=== PATIENT | female | born 1990 | race Caucasian/White ===

== ENCOUNTER 2017-12-15 21:01 | Emergency (ER) | payer BC, OTHER ==
[2017-12-15] MEDS: ACETAMINOPHEN 500 MG TAB PO (22:08)
== END 2017-12-15 23:05 | disposition home or self-care (01) ==
LOC: FTE 23:05
DX: R51 Headache (principal)
CPT/HCPCS: 70450; 81025; 99284-25

== ENCOUNTER 2017-12-16 09:52 | Emergency (ER) | payer BC | END 2017-12-16 10:44 | disposition home or self-care (01) | LOC: FTE 09:52 | DX: M25.50 Pain in unspecified joint (principal) | CPT/HCPCS: 99283 ==